=== PATIENT | female | born 1980 | race Caucasian/White ===

== ENCOUNTER 2018-03-07 21:22 | Emergency (ER) | payer MEDICAID ==
[~2018-03-07] VITALS: Ht 170.2 cm; Wt 98.9 kg
[2018-03-07 21:26] VITALS: BP 118/68; Ht 170.2 cm; Wt 98.9 kg
[2018-03-07 22:34] LABS: UA SPECIFIC GRAVITY <=1.005 (1.005-1.035); microscopic required? YES; urine erythrocyte 1+ (NEGATIVE)
== END 2018-03-07 23:02 | disposition home or self-care (01) ==
LOC: ED 21:22
PROVIDERS: Specialist
DX: N39.0 Urinary tract infection, site not specified (principal); E78.00 Pure hypercholesterolemia, unspecified